=== PATIENT | female | born 1940 | race Caucasian/White ===

== ENCOUNTER 2018-02-09 13:31 | Emergency (ER) | payer OTHER ==
[~2018-02-09] VITALS: Ht 165.1 cm; Wt 79.4 kg
[~2018-02-09 13:31] MED LIST: AMBIEN10 M1 PO; ASPIRIN81 M1 PO; ATIVAN0.5 MG PO; CELEXA10 MG PO; COREG25 MG PO; COUMADIN4 M1 PO; DESYREL50 MG PO; LASIX40 MG PO; LISINOPRIL2.5 MG PO; MIRALAX17 GM/DOSE PO; NKHM; PLAVIX75 MG PO; POTASSIUM20 MEQ PO; PROTONIX40 MG PO; VITAMIN D50000 IU PO; ZOCOR20 MG PO
[2018-02-09] MEDS ORDERED: SYNTHROID25 MCG PO (13:41)
[2018-02-09] MEDS ORDERED: MULTIPLE VITAM1 EAC1 PO (13:42)
[2018-02-09] MEDS ORDERED: NORCO 5-325 TA1 EACH PO (15:06)
== END 2018-02-09 15:15 | disposition home or self-care (01) ==
LOC: ED 13:31
DX: S02.2XXA Fracture of nasal bones, initial encounter for closed fracture (principal); Z79.899 Other long term (current) drug therapy; Z79.82 Long term (current) use of aspirin; W18.30XA Fall on same level, unspecified, initial encounter; Y93.89 Activity, other specified; Y92.89 Other specified places as the place of occurrence of the external cause; Y99.8 Other external cause status

== ENCOUNTER 2018-11-15 11:24 | Emergency (ER) | payer OTHER ==
[~2018-11-15] VITALS: Ht 165.1 cm; Wt 81.6 kg
--- NOTE | ~2018-11-15 | EKG ---
[place], [place] ELECTROCARDIOGRAM REPORT NAME: GERSON DAVIS UNIT #: [id number] ROOM: DOCTOR: EPIPHANY DRAFT REPORT BIRTHDATE: [birth year] [facility] Test Date: 2018-11-15 Test Time: 11:53:41 Pat Name: GERSON DAVIS Department: Room: Gender: F Rim [employer] Priming Operator: Becky Patton : 1940 Requested By: VALENTINA LEIVA Order Number: [id number] Reading MD: Ken Weinstein MD Measurements Intervals Bryan Rate: 62 P: -11 WI: 162 QRS: 6 QRSD: 125 T: 76 QT: 504 QTc: 512 Interpretive Statements Sinus rhythm Probable LVH with secondary repol abnrm Prolonged QT interval Baseline wander in lead(s) V1 Electronically Signed On 11-18-2018 3:57:41 PST by Ken Weinstein MD CM:EKGRPT:ELECTROCARDIOGRAM REPORT [id number] VALENTINA THAKUR DRAFT REPORT VALENTINA LEIVA M.D.
[~2018-11-15 11:24] MED LIST changes: +MULTIPLE VITAM1 EAC1 PO; +NORCO 5-325 TA1 EACH PO; +SYNTHROID25 MCG PO
[2018-11-15 12:02] LABS: BASO % 0.2 % (0.0-1.0); EOS % 0.7 % (1.0-4.0); HEMATOCRIT 37.9 % (37.0-47.0); HEMOGLOBIN 12.1 g/dl (12.0-16.0); LYMPH # 0.6 10*3/uL (1.3-4.4); LYMPH % 9.7 % (27.0-41.0); MEAN CELL VOLUME 81.7 fl (81.0-99.0); MEAN CORPUSCULAR HGB 26.1 pg (27.0-31.0); MEAN CORPUSCULAR HGB CONC 31.9 g/dl (33.0-37.0); MEAN PLATELET VOLUME 9.6 fl (9.6-12.3); MONO # 0.6 10*3/uL (0.1-1.0); NEUT # 4.7 10*3/uL (2.3-7.9); NEUT % 79.2 % (47.0-73.0); PLATELET COUNT AUTOMATED 162 10*3/uL (130-400); RED BLOOD COUNT 4.64 10*6/uL (4.10-5.10); RED CELL DISTRI WIDTH 15.3 % (0-14.5); WHITE BLOOD COUNT 5.9 10*3/uL (4.8-10.8)
[2018-11-15 12:27] LABS: ALBUMIN 3.1 gm/dl (3.1-4.5); ALKALINE PHOSPHATASE 92 U/L (45-117); BUN 10 mg/dl (7-24); CHLORIDE 103 mmol/L (98-107); CREATININE 0.66 mg/dL (0.55-1.02); SGOT/AST 26 IU/L (3-35); SGPT/ALT 49 U/L (12-78); SODIUM 136 mmol/L (136-145); TOTAL PROTEIN 6.6 gm/dL (6.4-8.2)
[2018-11-15 12:30] LABS: TROPONIN I < 0.015 ng/ml (<0.045)
[2018-11-15] MEDS ORDERED: LEVOFLOXACIN500 MG PO (12:59)
== END 2018-11-15 13:06 | disposition home or self-care (01) ==
LOC: ED 11:24
PROVIDERS: Emergency Medicine
DX: J18.1 Lobar pneumonia, unspecified organism (principal); Z79.899 Other long term (current) drug therapy; Z79.82 Long term (current) use of aspirin

== ENCOUNTER → 2019-03-24 | Outpatient (CLI) | payer OTHER ==
[~2019-03-24] MED LIST changes: +LEVOFLOXACIN500 MG PO
== END | disposition home or self-care (01) ==
LOC: US 15:30
DX: R60.0 Localized edema (principal); R41.9 Unspecified symptoms and signs involving cognitive functions and awareness; I10 Essential (primary) hypertension

== ENCOUNTER → 2019-08-19 | Day surgery (SDC) | payer OTHER ==
[~2019-08-19] VITALS: Ht 165.1 cm; Wt 72.6 kg
[~2019-08-19] MED LIST changes: +ATORVASTATIN CA40 M1 PO; +CALCIUM + VITA1 EAC2 PO; +CALCIUM 500+D1 EAC1 PO; +CARVEDILOL12.5 MG PO; +LEVOTHYROXINE50 MCG PO; +LISINOPRIL20 MG PO; +POTASSIUM CHLO20 ME4 PO; -POTASSIUM20 MEQ PO
--- NOTE | ~2019-08-19 | O ---
[place], [place] OPERATIVE NOTE NAME: GERSON DAVIS UNIT #: [id number] ROOM: DOCTOR: SUSANNAH PRAJAPATI MD BIRTHDATE: [birth year] DOS: 08/19/2019 PREOPERATIVE DIAGNOSIS: Cataract, left eye. POSTOPERATIVE DIAGNOSIS: Cataract, left eye. OPERATION: Extracapsular cataract extraction by phacoemulsification with posterior chamber intraocular lens implantation, left eye. ANESTHESIA: Monitored standby. OPERATIVE FINDINGS AND PROCEDURE: 2% Xylocaine topical anesthetic gel was applied to the eye in the preop area. The patient was taken to the operating room and prepped and draped in the standard fashion for sterile intraocular surgery. A time out procedure was performed verifying correct patient, correct site and corrects lens with Gabe Prajapati M.D. The operating microscope was swung into position and the lid speculum was inserted. Using a Jhoana paracentesis blade, a paracentesis was made through clear cornea. Viscoelastic was used to fill the anterior chamber. Using a metal keratome a 2.4 mm self-sealing clear corneal cataract incision was made temporally at the limbus. Using a pre-bent 25 gauge cystotome needle, a standard continuous curvilinear capsulorrhexis was performed. The anterior capsule was removed with forceps. The lens nucleus was hydrodissected and phacoemulsified in the posterior chamber. Cortical material was removed with the irrigation aspiration hand piece and the posterior capsule was then polished with a curet under irrigation. The posterior chamber and capsular bag were filled with viscoelastic. A posterior chamber intraocular lens manufactured by: [employer] [id number], and 21.0 diopters in strength were then inserted into the posterior chamber and within the capsular bag using the lens cartridge and injector system. Viscoelastic was removed using the irrigation aspiration handpiece. The anterior chamber was filled with balanced salt solution through the paracentesis. Both the paracentesis site and cataract incisions were hydrated with BSS and verified to be water-tight and self-sealing. Cefuroxime 1 mg/0.1 mL was injected into the anterior chamber through the paracentesis site. The incision checked to be water-tight using a Weck-Joellen sponge. The integrity of the cataract wound and ocular tension were checked. Lid speculum and drapes were removed. The patient was transferred from the operating room to the recovery room in satisfactory condition. [place], [place] OPERATIVE NOTE NAME: GERSON DAVIS UNIT #: [id number] ROOM: DOCTOR: SUSANNAH PRAJAPATI MD BIRTHDATE: [birth year] SUSANNAH PRAJAPATI MD CM:OPRECORD:OPERATIVE NOTE [id number] SUSANNAH PRAJAPATI MD 08/19/19 1017 interface
[2019-08-19 08:45] VITALS: BP 156/85
[2019-08-19 10:12] VITALS: BP 151/95
[2019-08-19 10:27] VITALS: BP 160/82
[2019-08-19 10:42] VITALS: BP 150/84
== END | disposition home or self-care (01) ==
LOC: SDC 08-12 10:15
DX: H25.812 Combined forms of age-related cataract, left eye (principal); I25.10 Atherosclerotic heart disease of native coronary artery without angina pectoris; I10 Essential (primary) hypertension; E11.9 Type 2 diabetes mellitus without complications; F41.9 Anxiety disorder, unspecified; Z79.899 Other long term (current) drug therapy; I25.2 Old myocardial infarction; Z90.710 Acquired absence of both cervix and uterus; Z98.890 Other specified postprocedural states; Z98.51 Tubal ligation status; Z95.5 Presence of coronary angioplasty implant and graft; Z86.73 Personal history of transient ischemic attack (TIA), and cerebral infarction without residual deficits

== ENCOUNTER 2019-11-16 11:03 | Inpatient (IN) | payer OTHER ==
[~2019-11-16] VITALS: Ht 165.1 cm; Wt 71.3 kg
[2019-11-16 11:06] VITALS: BP 123/66
[2019-11-16 12:08] LABS: BASO % 0.4 % (0.0-1.0); EOS # 0.1 10*3/uL (0.0-0.4); EOS % 1.4 % (1.0-4.0); HEMATOCRIT 36.4 % (37.0-47.0); HEMOGLOBIN 11.2 g/dl (12.0-16.0); LYMPH # 0.6 10*3/uL (1.3-4.4); LYMPH % 7.7 % (27.0-41.0); MEAN CELL VOLUME 82.7 fl (81.0-99.0); MEAN CORPUSCULAR HGB 25.5 pg (27.0-31.0); MEAN CORPUSCULAR HGB CONC 30.8 g/dl (33.0-37.0); MEAN PLATELET VOLUME 10.9 fl (9.6-12.3); MONO # 0.8 10*3/uL (0.1-1.0); MONO % 10.1 % (3.0-9.0); NEUT # 6.6 10*3/uL (2.3-7.9); NEUT % 80.2 % (47.0-73.0); PLATELET COUNT AUTOMATED 168 10*3/uL (130-400); RED CELL DISTRI WIDTH 17.8 % (0-14.5); WHITE BLOOD COUNT 8.3 10*3/uL (4.8-10.8)
--- NOTE | 2019-11-16 12:10 | NUR ---
PATIENT ADIVSED THAT SHE HAD TO URINATE. A TOILETING HAT WAS PROVIDED. NO URINE ABLE TO BE COLLECTED/
[2019-11-16 12:18] LABS: ACT PARTIAL THROMBO TIME 25.4 SECONDS (20.0-32.1); INTERNATIONAL NORM RATIO 1.2 (2.0-3.5)
[2019-11-16 12:26] LABS: ALBUMIN 2.8 gm/dl (3.1-4.5); ALKALINE PHOSPHATASE 54 U/L (45-117); BUN 32 mg/dl (7-24); CHLORIDE 108 mmol/L (98-107); CREATININE 0.95 mg/dL (0.55-1.02); POTASSIUM 4.5 mmol/L (3.5-5.1); SGOT/AST 24 IU/L (3-35); SGPT/ALT 38 U/L (12-78); SODIUM 142 mmol/L (136-145); TOTAL PROTEIN 5.5 gm/dL (6.4-8.2)
[2019-11-16 12:29] LABS: TROPONIN I < 0.015 ng/ml (<0.045)
[2019-11-16 14:13] LABS: BILIRUBIN NEGATIVE (NEGATIVE); BLOOD NEGATIVE (NEGATIVE); CLARITY CLEAR (CLEAR); COLOR YELLOW (YELLOW); GLUCOSE NEGATIVE (NEGATIVE); KETONE 1+ (NEGATIVE); LEUKO ESTERASE NEGATIVE (NEGATIVE); NITRITE NEGATIVE (NEGATIVE); SPECIFIC GRAVITY 1.025 (1.005-1.030); UROBILINOGEN 0.2 E.U./dl (0.2-1.0)
--- NOTE | 2019-11-16 16:30 | NUR ---
Time: 1629 A 79 year old FEMALE admitted to 5E under services of VIOLETTA WANG DO. Pt. arrived via bed from ER. Chief complaint: UNABLE TO AMBULATE, FALLS. JANEEN HUERTA
--- NOTE | 2019-11-16 16:32 | NUR ---
SCAB NOTED TO OUTER LEFT LEG. NO DRAINAGE.
[2019-11-16 16:39] VITALS: BP 146/90
[2019-11-16] MEDS ORDERED: GLUCOPHAGE500 M1 PO (16:51)
--- NOTE | 2019-11-16 17:30 | NUR ---
NOTIFIED THAT MED REC IS UP TO DATE.
[2019-11-16] MEDS ORDERED: ATIVAN0.5 MG PO (17:37)
[2019-11-16 20:00] VITALS: BP 115/67
--- NOTE | 2019-11-16 20:50 | NUR ---
24 HR chart check completed.
--- NOTE | 2019-11-16 21:00 | NUR ---
RESTING IN BED. NO ACUTE DISTRESS NOTED. RESPIRATIONS EASY. LUNGS DIMINISHED WITH FAINT PB RALES. PULSE OX 94% RA. BLE EDEMA R>L. SCAB LLE. CALL LIGHT WITHIN REACH. NO VOICED COMPLAINTS. BED ALARM MAINTAINED FOR SAFETY
--- NOTE | 2019-11-16 21:58 | NUR ---
MEDICATED WITH TYLENOL AND RESTORIL PER PRN ORDER FOR C/O GEN ACHES/PAINS AND TO ASSIST WITH SLEEP. WILL MONITOR FOR EFFECTIVENESS
--- NOTE | 2019-11-16 23:00 | NUR ---
MEDS EFFECTIVE. SLEEPING. RESPIRATIONS EASY. CALL LIGHT WITHIN REACH. BED ALARM MAINTAINED FOR SAFETY
[2019-11-17] VITALS: BP 103/61
--- NOTE | 2019-11-17 00:30 | NUR ---
SLEEPING. NO DISTRESS NOTED. RESPIRATIONS EASY. VSS. CALL LIGHT WITHIN REACH. NO VOICED COMPLAINTS.
--- NOTE | 2019-11-17 06:00 | NUR ---
RESTED THROUGHOUT NIGHT WITH NO DISTRESS NOTED. RESPIRATIONS EASY. CALL LIGHT WITHIN REACH. NO VOICED COMPLAINTS THIS SHIFT
[2019-11-17 06:27] LABS: BASO % 0.6 % (0.0-1.0); EOS # 0.2 10*3/uL (0.0-0.4); EOS % 2.4 % (1.0-4.0); HEMATOCRIT 35.3 % (37.0-47.0); HEMOGLOBIN 10.9 g/dl (12.0-16.0); LYMPH # 0.9 10*3/uL (1.3-4.4); LYMPH % 14.1 % (27.0-41.0); MEAN CELL VOLUME 83.1 fl (81.0-99.0); MEAN CORPUSCULAR HGB 25.6 pg (27.0-31.0); MEAN CORPUSCULAR HGB CONC 30.9 g/dl (33.0-37.0); MONO # 0.8 10*3/uL (0.1-1.0); NEUT # 4.7 10*3/uL (2.3-7.9); NEUT % 70.6 % (47.0-73.0); PLATELET COUNT AUTOMATED 163 10*3/uL (130-400); RED BLOOD COUNT 4.25 10*6/uL (4.10-5.10); RED CELL DISTRI WIDTH 17.6 % (0-14.5); WHITE BLOOD COUNT 6.7 10*3/uL (4.8-10.8)
[2019-11-17 07:02] LABS: ALBUMIN 2.6 gm/dl (3.1-4.5); CREATININE 1.08 mg/dL (0.55-1.02); PHOSPHOROUS 3.9 mg/dL (2.5-4.9); POTASSIUM 3.9 mmol/L (3.5-5.1); TOTAL PROTEIN 5.1 gm/dL (6.4-8.2)
[2019-11-17 07:07] LABS: THYROID STIM HORMONE (HS) 4.91 uIU/ml (0.358-4.75)
[2019-11-17 08:00] VITALS: BP 127/77
--- NOTE | 2019-11-17 09:00 | NUR ---
[employer] in to talk to patient. Patient states lives at home with alone. There are no steps in the home. Physician: tona kay Pharmacy: [facility] health services: none Patient's level of ADLs: MINIMAL ASSIST Patient has working utilities: all working DME: patient states none Follow-up physician's appointment after d/c: will be made by hospitalist nurse director upon discharge Does patient want to access PORTAL?: no Discharge plan discussed with patient, she states she lives at home alone, she states she ambulates fine, discussed with her falling multiple times at home and patient stated he didn't have any falls at home, case management will talk with patient's family regarding dischage plans. CATIE COY
--- NOTE | 2019-11-17 10:00 | NUR ---
Occupational Therapy evaluation completed on five with full evaluation to follow. Recommend occupational therapy per plan of care and SNF upon discharge. Patient would benefit from continued OT treatment to maximize her safety and independence with ADLs, transfers, and mobility. OTR and PT spoke with the family, who would also like a SNF. Patient is hesistant of a SNF stay due to her prior medical course and rehab. Thank you for this referral. Nasreen Roe, OTR/L
--- NOTE | 2019-11-17 10:00 | NUR ---
PT DENIES NEEDS AT THIS TIME. PLEASANT & COOPERATIVE. LUNGS DIMINISHED. ROOM AIR. FAMILY PRESENT IN ROOM. 1+ EDEMA NOTED TO BLE, R>L. PT'S CALL LIGHT WITHIN REACH.
--- NOTE | 2019-11-17 10:30 | NUR ---
Physical Therapy evaluation completed with full evaluation to follow. Recommend physical therapy per plan of care and SNF upon discharge. Thank you for this referral. Alexus Juan PT
[2019-11-17 12:00] VITALS: BP 132/67
--- NOTE | 2019-11-17 12:20 | NUR ---
case management visits with patient, daughter and son present, family stated that patient has had multiple falls at home and they would prefer patient go to a short term usp for rehab prior to returning home, they stated they would like patient to go to [facility]. social media intern will make referral to [facility] for rehab. insurance precert will need to be obtained prior to patient going. case management will follow
--- NOTE | 2019-11-17 12:25 | NUR ---
PT HAVING ECHO DONE AT THIS TIME AND STATES THAT SHE STARTED FEELING ILL. ECHO AIDA STOPPED ECHO D/T PT FEELING ILL. PT REQUESTING MICHAEL SOMMERS AT THIS TIME. NOTIFIED UNABLE TO FINISH THE ECHO.
--- NOTE | 2019-11-17 15:46 | NUR ---
PHYSICAL THERAPY Screen and PT eval recieved pt has been evaluated and is on caseload thank you Alexus Juan PT
[2019-11-17 16:00] VITALS: BP 139/87
--- NOTE | 2019-11-17 16:00 | NUR ---
PT IN ROOM VISITING WITH DAUGHTER. DENIES NEEDS A TTHIS TIME.
[2019-11-17 20:00] VITALS: BP 121/79
--- NOTE | 2019-11-17 20:16 | NUR ---
24 HR chart check completed.
--- NOTE | 2019-11-17 21:00 | NUR ---
RESTING IN BED WITH NO DISTRESS NOTED. RESPIRATIONS EASY. LUNGS DIMINISHED WITH FINE PB RALES. PULSE OX 98% RA. BLE EDEMA. CALL LIGHT WITHIN REACH. NO VOICED COMPLAINTS. BED ALARM MAINTAINED FOR SAFETY
--- NOTE | 2019-11-17 22:14 | NUR ---
MEDCIATED WITH ATIVAN PER PRN ORDER TO ASSIST WITH SLEEP. WILL MONITOR
[2019-11-18] VITALS: BP 123/84
--- NOTE | 2019-11-18 | NUR ---
MEDS EFFECTIVE. SLEEPING. RESPIRATIONS EASY. VSS.
--- NOTE | 2019-11-18 03:00 | NUR ---
CONTINUES TO SLEEP
--- NOTE | 2019-11-18 06:00 | NUR ---
RESTED THROUGHOUT NIGHT WITH NO DISTRESS NOTED. RESPIRATIONS EASY. CALL LIGHT WITHIN REACH. NO VOICED COMPLAINTS THIS SHIFT
[2019-11-18 08:00] VITALS: BP 145/90
[2019-11-18 08:43] LABS: BASO # 0.1 10*3/uL (0.0-0.1); BASO % 0.5 % (0.0-1.0); EOS # 0.2 10*3/uL (0.0-0.4); EOS % 1.8 % (1.0-4.0); HEMATOCRIT 40.1 % (37.0-47.0); HEMOGLOBIN 12.6 g/dl (12.0-16.0); LYMPH # 0.9 10*3/uL (1.3-4.4); LYMPH % 8.6 % (27.0-41.0); MEAN CELL VOLUME 81.5 fl (81.0-99.0); MEAN CORPUSCULAR HGB 25.6 pg (27.0-31.0); MEAN CORPUSCULAR HGB CONC 31.4 g/dl (33.0-37.0); MEAN PLATELET VOLUME 10.4 fl (9.6-12.3); MONO # 1.1 10*3/uL (0.1-1.0); MONO % 10.4 % (3.0-9.0); NEUT # 7.9 10*3/uL (2.3-7.9); NEUT % 78.5 % (47.0-73.0); RED BLOOD COUNT 4.92 10*6/uL (4.10-5.10); RED CELL DISTRI WIDTH 17.7 % (0-14.5); WHITE BLOOD COUNT 10.1 10*3/uL (4.8-10.8)
[2019-11-18 08:58] LABS: PLATELET COUNT AUTOMATED 213 10*3/uL (130-400)
--- NOTE | 2019-11-18 09:00 | NUR ---
case management visits with patient, [facility] has accepted patient and precert has been initated, case management will follow
--- NOTE | 2019-11-18 09:09 | NUR ---
IN TO SEE PATIENT.
--- NOTE | 2019-11-18 09:12 | NUR ---
Hospital exemption completed for [facility].
[2019-11-18 09:17] LABS: BUN 29 mg/dl (7-24); CHLORIDE 107 mmol/L (98-107); CREATININE 1.04 mg/dL (0.55-1.02); POTASSIUM 3.7 mmol/L (3.5-5.1); SODIUM 142 mmol/L (136-145)
--- NOTE | 2019-11-18 11:05 | NUR ---
PHYSICAL THERAPY Patient seen this am 1:1 for therapy visit and was resting supine in bed with her Son visiting upon therapist arrival. Patient identified by name / and presented with several bouts of slow processing with simple commands. Patient transfers supine to sit EOB with MIN A, needing a minute or so to collect herself. Patient performed sit to stand MIN A and ambulated with use of wh walker, MIN/CGA, 45' x 1, demonstrating very slow, cautious gait pattern. Patient also unsteady at times during all 90 / 180 turns, requiring v/c for safe step sequence, then returned to supine in bed with mild fatigue. Patient remained in bed with call light, tray table, telephone and bed alarm for safety. Will continue per POC as tolerated, total treatment time 14 minutes. Yuval Branham, PATIENT SERVICE REP
--- NOTE | 2019-11-18 11:39 | NUR ---
OT NOTE PATIENT SEEN OT THIS DATE 15 MINUTES. PATIENT IDENTIFIED BY NAME AND DATE OF . PATIENT IN BED UPON ARRIVAL WITH FAMILY MEMBER PRESENT. PATIENT COMPLETED SUPINE TO SIT EOB MIN A. PATIENT COMPLETED SIT TO STAND FROM BED MIN A. COMPLETED FUNCTIONAL AMBULATION TO BATHROOM USE FWW SUPPORT CGA. COMPLETED TOILET TRANSFER MIN A MIN VERBAL CUES SAFETY USE GRAB BAR. PATIENT COMPLETED TOILETING TASK MIN A. COMPLETED GROOMING TASK STANDING AT SINK CGA BRUSH TEETH WITH MOD VERBAL CUES SEQUENCING TASK FOR THOROUGHNESS. PATIENT COMPLETED SIT TO SUPINE BED CGA AND MIN A PROPER BODY ALIGNMENT. PATIENT IN BED WITH CALL LIGHT IN REACH ALARM INTACT. CONTINUE TOWARDS PLAN OF CARE. HEIDE [place]/Dmitri
[2019-11-18 12:00] VITALS: BP 124/62
--- NOTE | 2019-11-18 12:28 | NUR ---
PATIENT ASSISTED OOB TO BATHROOM VIA WALKER. STEADY GAIT WITH 1 ASSIST. WILL CONTINUE TO MONITOR.
--- NOTE | 2019-11-18 14:50 | NUR ---
VISTARIL PO GIVEN X1 PER ORDER FOR INCREASED ANXIETY. WILL MONITOR EFFECTIVENESS. BED ALARM MAINTAINED FOR SAFETY.
[2019-11-18 16:00] VITALS: BP 114/71
--- NOTE | 2019-11-18 16:00 | NUR ---
VISTARIL EFFECTIVE PER PT.
[2019-11-18 20:00] VITALS: BP 104/66
--- NOTE | 2019-11-18 20:00 | NUR ---
IN TO ASSESS PATIENT, PATIENT RESTING IN BED. PLEASANT AND COOPERATIVE. ALERT AND ORIENTED X3. DENIES ANY COMPLAINTS AT THIS TIME BESIDES FREQUENCY DUE TO LASIX THERAPY. CALL LIGHT WITHIN REACH, WILL MONITOR
[2019-11-19] VITALS: BP 102/64; BP 127/52
--- NOTE | 2019-11-19 | NUR ---
PT SLEEPING, NO DISTRESS NOTED. ON ROOM AIR. CALLL LIGHT WITHIN REACH, WILL MONITOR
--- NOTE | 2019-11-19 02:35 | NUR ---
24 HR chart check completed.
--- NOTE | 2019-11-19 04:00 | NUR ---
ASSISTED PATIENT UP TO RESTROOM. NO COMPLAINTS AT THIS TIME. CALLL LIGHT WITHIN REACH, WILL MONITOR
[2019-11-19 07:23] LABS: CHLORIDE 106 mmol/L (98-107); POTASSIUM 2.9 mmol/L (3.5-5.1); SODIUM 145 mmol/L (136-145)
[2019-11-19 07:27] LABS: BUN 30 mg/dl (7-24); CREATININE 0.97 mg/dL (0.55-1.02)
--- NOTE | 2019-11-19 07:37 | NUR ---
NOTIFIED REGARDING K OF 2.9. NEW ORDERS TO BE ENTERED PER PHYSICIAN.
[2019-11-19 08:00] VITALS: BP 122/76
--- NOTE | 2019-11-19 08:15 | NUR ---
OT NOTE Pt was seen this A.M. 1:1 for 30 minute OT session. Upon arrival pt was supine in bed. Pt identified by name and and had no complaints at this time. Pt transferred supine to sit EOB with Geovany for assist with UB. Sit to stand completed from bed level with CGA and use of w/w for UE support. Functional mobility was then completed to the bathroom with CGA and use of w/w. There she transferred on to standard commode with CGA and off with Geovany due to low surface. Clothing management completed with Geovany and toilet hygiene completed with Geovany due to requiring verbal prompt to start task. Pt then stood sink side while washing her hands and brushing her teeth with Geovany for assist with sequencing of task. Challenged pt's dynamic standing balance needed for increased I and enhanced safety. While weight shifting, crossing midline, and reaching over all planes pt was able to maintain F standing balance. Challenged pt's static standing tolerance needed for enhanced endurance and pt was able to tolerate aprox 5 minutes before sitting due to fatigue. Pt was left sitting upright in the recliner with call light in hand, tray table in place, and body alarm activated for safety. Continue with rec D/C plan to SNF. JDUY Kebede
--- NOTE | 2019-11-19 08:20 | NUR ---
PHYSICAL THERAPY TREATMENT TIME: 8:00 AM - 8;20 AM 20 MINUTES Patient presented to therapy in supine with head of bed elevated and bed alarm activated with report of no pain 0/10. Patient gives informed consent for treatment. Patient was identified by name and on wristband. Patient is not on spO2. Patient completed supine to sitting on EOB with CGA. Patient sat on EOB with SBA. Patient performed sit to stand from EOB with CGA. Patient ambulated with Wh Walker and CGA FOR 60' X 1 AND 50' X 1 RESP[ECTIVELY, with standing rest break at the end of the first 60' x 1. Patient had no LOB with gait. Patient sit to stand out of low chair with MIN A X 1 and verbal cues for pushing off the armrests with hands. Patient sat in bedside chair with CGA. Patient was left in bedside chair with call light within reach, chair alarm tested and attached to patient and tray table in front of patient. Patient was 1:1 with this CHLORINATOR OPERATOR for 20 minutes total. MARZENA TYLER CHLORINATOR OPERATOR
[2019-11-19] MEDS ORDERED: LASIX20 MG PO (09:56)
[2019-11-19] MEDS ORDERED: LORAZEPAM0.5 MG PO (10:45)
--- NOTE | 2019-11-19 11:03 | NUR ---
Discharge instructions reviewed with patient/family. Patient receptive and verbalizes understanding. Follow-up care arranged. Written instructions given to patient/family. VERENA GAXIOLA.
--- NOTE | 2019-11-19 11:12 | NUR ---
AMBULANCE HERE TO TRANSPORT PATIENT TO [facility].
--- NOTE | 2019-11-19 11:24 | NUR ---
REPORT GIVEN TO NURSE AT [facility].
--- NOTE | 2019-11-19 11:50 | NUR ---
Patient is discharged to [facility] via [facility] @ 11:00. DC information faxed, NH, nursing/game warden and family all notified.
--- NOTE | 2019-11-20 07:19 | NUR ---
PHYSICAL THERAPY CO-SIGN I approve of the Physical Therapy notes written above. Alexus Juan PT
--- NOTE | 2019-11-20 12:36 | NUR ---
OCCUPATIONAL THERAPY CO-SIGN I approve of the Occupational Therapy notes written above. TWYLA MACK OTR/Dmitri
== END 2019-11-19 11:24 | disposition other institution (70) | DRG 291 ==
LOC: ED 11:03 → EDHOLD 15:05 → 5E 15:05
PROVIDERS: Emergency Medicine; Internal Medicine; Student in an Organized Health Care Education/Training Program; ADMIT Internal Medicine
DX: I11.0 Hypertensive heart disease with heart failure (principal); N17.0 Acute kidney failure with tubular necrosis; E44.0 Moderate protein-calorie malnutrition; I50.9 Heart failure, unspecified; F41.9 Anxiety disorder, unspecified; E78.5 Hyperlipidemia, unspecified; F32.9 Major depressive disorder, single episode, unspecified; E03.9 Hypothyroidism, unspecified; K21.9 Gastro-esophageal reflux disease without esophagitis; E66.3 Overweight; Z68.28 Body mass index [BMI] 28.0-28.9, adult; D64.9 Anemia, unspecified; E87.8 Other disorders of electrolyte and fluid balance, not elsewhere classified; R73.9 Hyperglycemia, unspecified; I25.2 Old myocardial infarction; Z86.73 Personal history of transient ischemic attack (TIA), and cerebral infarction without residual deficits; Z79.01 Long term (current) use of anticoagulants; Z95.2 Presence of prosthetic heart valve; I34.0 Nonrheumatic mitral (valve) insufficiency; Z79.82 Long term (current) use of aspirin; Z79.899 Other long term (current) drug therapy; I50.33 Acute on chronic diastolic (congestive) heart failure

== ENCOUNTER 2019-12-03 13:23 | Emergency (ER) | payer OTHER ==
[~2019-12-03] VITALS: Wt 77.1 kg
[~2019-12-03 13:23] MED LIST changes: +GLUCOPHAGE500 M1 PO; +LASIX20 MG PO; +LORAZEPAM0.5 MG PO
[2019-12-03 14:26] LABS: HEMATOCRIT 33.6 % (37.0-47.0); HEMOGLOBIN 10.3 g/dl (12.0-16.0); MEAN CELL VOLUME 80.8 fl (81.0-99.0); MEAN CORPUSCULAR HGB 24.8 pg (27.0-31.0); MEAN CORPUSCULAR HGB CONC 30.7 g/dl (33.0-37.0); MEAN PLATELET VOLUME 11.7 fl (9.6-12.3); PLATELET COUNT AUTOMATED 159 10*3/uL (130-400); RED BLOOD COUNT 4.16 10*6/uL (4.10-5.10); RED CELL DISTRI WIDTH 16.9 % (0-14.5); WHITE BLOOD COUNT 9.4 10*3/uL (4.8-10.8)
[2019-12-03 14:41] LABS: ALBUMIN 2.6 gm/dl (3.1-4.5); CREATININE 2.56 mg/dL (0.55-1.02); POTASSIUM 4.9 mmol/L (3.5-5.1); TOTAL PROTEIN 5.4 gm/dL (6.4-8.2)
[2019-12-03 14:47] LABS: BURR CELLS MANY; OVALOCYTES MODERATE; PLATELET SUFFICIENCY NORMAL (NORMAL); TOTAL CELLS COUNTED 100 #CELLS
== END 2019-12-03 18:00 | disposition home health service (06) ==
LOC: ED 13:23
PROVIDERS: Nurse Practitioner Family
DX: I95.9 Hypotension, unspecified (principal); G93.40 Encephalopathy, unspecified